=== PATIENT | male | born 1950 | race African-American/Black ===

== ENCOUNTER 2019-04-28 12:15 | Emergency (ER) | payer MEDICARE, MEDICAID ==
[~2019-04-28] VITALS: Ht 188 cm; Wt 102.1 kg
[2019-04-28] MEDS ORDERED: UNOBMED (12:33)
--- NOTE | 2019-04-28 12:38 | NUR ---
ED Nurse Note: Patient walked into ED c/o right foot pain and swelling since 04/23/19. patient is alert awake x4 ambulatory, breathing unlabored and even, skin is warm to touch.
--- NOTE | 2019-04-28 12:43 | Emergency Room Report ---
History of Present Illness General Chief Complaint: Pain Source: Patient Present Illness HPI 68-year-old male with history of chronic right ankle pain x10 years and GERD here complaining of increased pain in the right ankle when he applies pressure. Patient is currently under pain management and all glands and has Paoli. Patient traveled here a few days ago via car. Denies calf tenderness and swelling. Patient reports that he had a surgery in the right ankle with pin placement over 20 years ago and his primary doctor has told him that he needs to have surgery on the right ankle due to increased swelling and pain. Patient sees his primary care physician this coming Tuesday. Denies tingling or numbness , denies pain radiation. Patient is rating the pain 3 out of 10 when sitting and 5 out of 10 when walking applying pressure. He is requesting crutches in order to be able to walk. Patient also complains of worsening acid reflux however denies chest pain palpitation. Denies shortness of breath, nausea vomiting, fever and chills. Patient does not take any medication for his acid reflux. Allergies: Coded Allergies: No Known Allergies (Unverified , 04/28/19) Patient History Past Medical History: see triage record Past Surgical History: unable to obtain Pertinent Family History: none Immunizations: UTD Reviewed Nursing Documentation: PMH: Agreed; PSxH: Agreed Review of Systems All Other Systems: negative except mentioned in HPI Physical Exam Vital Signs Date Time Temp Pulse Resp B/P (MAP) Pulse Ox O2 Delivery O2 Flow Rate FiO2 04/28/19 12:28 98.1 73 19 135/84 (101) 100 Room Air Sp02 EP Interpretation: reviewed, normal General Appearance: normal inspection, well appearing, no apparent distress, alert, GCS 15 Head: normocephalic, atraumatic Eyes: bilateral eye normal inspection, bilateral eye PERRL ENT: normal ENT inspection, hearing grossly normal, normal pharynx Neck: normal inspection, full range of motion, supple Respiratory: normal inspection, chest non-tender, lungs clear, no respiratory distress, no wheezing Cardiovascular #1: normal inspection, normal peripheral pulses, regular rate, rhythm, no edema, no gallop, normal capillary refill Cardiovascular #2: 2+ dorsalis pedis (R), 2+ dorsalis pedis (L) Gastrointestinal: normal inspection, non tender, soft Rectal: deferred Genitourinary: no CVA tenderness Musculoskeletal: back normal, digits/nails normal, no calf tenderness, swelling - Right lateral ankle Neurologic: normal inspection, alert, oriented x3, burning supervisor III-XII nml as tested Psychiatric: normal inspection, judgement/insight normal Skin: normal inspection, normal color, no rash, warm/dry Lymphatic: normal inspection, no adenopathy Medical Decision Making PA Attestation All my diagnosis and treatment plans were reviewed ad discussed with my supervising physician Dr. Santos Diagnostic Impression: Primary Impression: Chronic ankle pain Additional Impression: GERD (gastroesophageal reflux disease) ER Course 68-year-old male with history of chronic right ankle pain x10 years and GERD here complaining of increased pain in the right ankle when he applies pressure. Patient is currently under pain management and all glands and has Paoli. Patient traveled here a few days ago via car. Denies calf tenderness and swelling. Patient reports that he had a surgery in the right ankle with pin placement over 20 years ago and his primary doctor has told him that he needs to have surgery on the right ankle due to increased swelling and pain. Patient sees his primary care physician this coming Tuesday. Denies tingling or numbness , denies pain radiation. Patient is rating the pain 3 out of 10 when sitting and 5 out of 10 when walking applying pressure. He is requesting crutches in order to be able to walk. Patient also complains of worsening acid reflux however denies chest pain palpitation. Denies shortness of breath, nausea vomiting, fever and chills. Patient does not take any medication for his acid reflux. Ddx considered but are not limited to: ankle sprain, ankle strain, ankle fracture, ankle contusion . Chronic ankle pain, GERD,PA Vital signs: are WNL, pt. is afebrile H&PE are most consistent with: Chronic ankle pain, GERD ORDERS: Omeprazole, crutches, EKG ED INTERVENTIONS: crutches, no XRay needed at this point as this is chronic DISCHARGE: At this time pt. is stable for d/c to home. Will provide printed patient care instructions, and any necessary prescriptions. Care plan and follow up instructions have been discussed with the patient prior to discharge. Follow-up with a primary care provider and pain management regarding your ankle at this point no indication for further imaging and cardiac work-up due to presentation of the patient's severity of symptoms and duration of symptoms. EKG Diagnostic Results Rate: normal Rhythm: NSR ST Segments: no acute changes Last Vital Signs Date Time Temp Pulse Resp B/P (MAP) Pulse Ox O2 Delivery O2 Flow Rate FiO2 04/28/19 12:28 98.1 73 19 135/84 (101) 100 Room Air Disposition: HOME, SELF-CARE Condition: Stable Scripts Omeprazole (OMEPRAZOLE) 20 Mg Tablet. 20 MG ORAL DAILY, #30 TAB Prov: Julien Munguia 04/28/19 Patient Instructions: Ankle Pain, Food Choices for Gastroesophageal Reflux Disease, Adult, [id number] Additional Instructions: Follow with a primary care provider and pain management for the ankle as it is an old injury and needs further attention keep it elevated take your medication as it was prescribed by your primary care provider avoid eating spicy and acidic food. Julien Munguia Apr 28, 2019 12:43
[2019-04-28] MEDS ORDERED: OMEPRAZOLE20 M3 ORAL (12:44)
[2019-04-28 12:48] VITALS: BP 131/82
[2019-04-28 13:02] VITALS: BP 131/82
--- NOTE | 2019-04-28 13:02 | NUR ---
ER DISCHARGE NOTE: Patient is cleared to be discharged per BETH BARTLETT, pt is aox4, on room air, with stable vital signs. pt was given dc and prescription instructions, pt was able to verbalize understanding, pt id band removed without complications. pt is able to ambulate with crutches. pt took all belongings.
== END 2019-04-28 13:05 | disposition home or self-care (01) ==
LOC: EMR 13:04
DX: M25.571 Pain in right ankle and joints of right foot (principal); K21.9 Gastro-esophageal reflux disease without esophagitis
CPT/HCPCS: 93005; 99282

== ENCOUNTER 2019-06-29 09:20 | Emergency (ER) | payer MEDICARE, MEDICAID ==
[~2019-06-29] VITALS: Ht 182.9 cm; Wt 99.8 kg
[~2019-06-29 09:20] MED LIST: OMEPRAZOLE20 M3 ORAL; UNOBMED
--- NOTE | 2019-06-29 09:30 | NUR ---
ED Nurse Note: pt walked in to ED due to cp aw coughing for over 1 1/2 weeks. breaths sounds clear. respirations even and non-labored noted. per pt, was here and he needs same tx. AAO x4. pt also c/o intermittent abdominal pain. on desk monitor. ekg done at the bed side. will wait for the further order.
[2019-06-29 09:31] VITALS: BP 175/94
[2019-06-29] MEDS ORDERED: cefTRIAXone 1 GM in NS 55 ML IV SCH (09:45)
--- NOTE | 2019-06-29 10:00 | NUR ---
ED Nurse Note: pt requested "morphine" for pain. pt refused other pain meds. RN notified to dr. Campuzano. will wait for the further order.
--- NOTE | 2019-06-29 10:14 | Diagnostic Imaging Report ---
Indication: Shortness of breath Technique: One view of the chest Comparison: none Findings: Lungs and pleural spaces are clear. Heart size is normal Impression: No acute process
[2019-06-29 10:41] LABS: BASOPHILS % (AUTO) 0.8 % (0.0-2.0); EOSINOPHILS % (AUTO) 4.3 % (0.0-3.0); HEMATOCRIT 38.8 % (42.0-52.0); HEMOGLOBIN 12.7 G/DL (14.2-18.0); LYMPHOCYTES % (AUTO) 26.6 % (20.0-45.0); MEAN CORPUSCULAR VOLUME 89 FL (80-99); MONOCYTES % (AUTO) 8.1 % (1.0-10.0); NEUTROPHILS % (AUTO) 60.2 % (45.0-75.0); PLATELET COUNT 257 K/UL (150-450); RED BLOOD COUNT 4.36 M/UL (4.70-6.10); RED CELL DISTRIBUTION WIDTH 12.5 % (11.6-14.8); WHITE BLOOD COUNT 6.6 K/UL (4.8-10.8)
[2019-06-29] MEDS ORDERED: Albuterol ud Inhalation HHN ONE (10:45)
[2019-06-29 10:47] LABS: ANION GAP 7 mmol/L (5-15); BLOOD UREA NITROGEN 11 mg/dL (7-18); CALCIUM 8.8 MG/DL (8.5-10.1); CARBON DIOXIDE 26 MMOL/L (21-32); CHLORIDE 105 MMOL/L (98-107); CREATININE 1.2 MG/DL (0.55-1.30); POTASSIUM 3.9 MMOL/L (3.5-5.1); SODIUM 138 MMOL/L (136-145)
[2019-06-29 10:51] LABS: ALANINE AMINOTRANSFERASE 21 U/L (12-78); ALBUMIN 3.5 G/DL (3.4-5.0); ALBUMIN/GLOBULIN RATIO 0.9 (1.0-2.7); ALKALINE PHOSPHATASE 64 U/L (46-116); ASPARTATE AMINO TRANSFERASE 14 U/L (15-37); BILIRUBIN,TOTAL 0.7 MG/DL (0.2-1.0)
[2019-06-29 11:00] VITALS: BP 127/77
--- NOTE | 2019-06-29 11:51 | Emergency Room Report ---
History of Present Illness General Chief Complaint: Upper Respiratory Illness Source: Patient Present Illness HPI This patient states that he and his have the same symptoms. He states that he has had cough and sputum production for the past 1 week. He denies fever chills. He denies nausea or vomiting. He denies chest pain or shortness of breath. He states that his was seen here at [facility] and was given a breathing treatment and feeling much better. He denies abdominal pain. He has no other complaints. Allergies: Coded Allergies: No Known Allergies (Unverified , 04/28/19) Patient History Past Medical History: see triage record, other - BPH Social History: Denies: smoking, alcohol use, drug use Reviewed Nursing Documentation: PMH: Agreed; PSxH: Agreed Nursing Documentation-PMH Past Medical History: No History, Except For Review of Systems All Other Systems: negative except mentioned in HPI Physical Exam Vital Signs Date Time Temp Pulse Resp B/P (MAP) Pulse Ox O2 Delivery O2 Flow Rate FiO2 06/29/19 09:25 98.6 76 16 175/94 (121) 99 Room Air 06/29/19 10:53 21 Sp02 EP Interpretation: reviewed, normal General Appearance: no apparent distress, alert, GCS 15, non-toxic Head: normocephalic, atraumatic Eyes: bilateral eye normal inspection, bilateral eye PERRL ENT: hearing grossly normal, normal pharynx, no angioedema, normal voice Neck: full range of motion, supple/symm/no masses Respiratory: chest non-tender, lungs clear, normal breath sounds, no respiratory distress, no retraction, no accessory muscle use, speaking full sentences Cardiovascular #1: regular rate, rhythm, no edema Gastrointestinal: normal bowel sounds, non tender, soft, non-distended, no guarding, no rebound Rectal: deferred Musculoskeletal: back normal, gait/station normal, normal range of motion, non- tender Neurologic: alert, oriented x3, responsive, motor strength/tone normal, sensory intact, speech normal Psychiatric: judgement/insight normal, memory normal, mood/affect normal, no suicidal/homicidal ideation Skin: no rash, normal color Medical Decision Making Diagnostic Impression: Primary Impression: Bronchitis ER Course This patient likely has acute bronchitis. He has had cough and sputum production. There is no obvious opacity on chest x-ray concerning for pneumonia , however, given the patient's age and length of symptoms I will treat with a course of antibiotics. He was given a breathing treatment here in the emergency department. The patient's well-appearing and nontoxic without respiratory distress. He is given close return precautions and follow-up instructions. EKG Diagnostic Results Rate: normal Rhythm: NSR ST Segments: no acute changes Rhythm Strip Diag. Results EP Interpretation: yes Rate: 60's Rhythm: NSR, no PVC's, other - PAC's Chest X-Ray Diagnostic Results Chest X-Ray Diagnostic Results : Chest X-Ray Ordered: Yes # of Views/Limited/Complete: 1 View Indication: Other - cough EP Interpretation: Yes Interpretation: no consolidation, no effusion, no pneumothorax, no acute cardiopulmonary disease Impression: No acute disease Electronically Signed by: Katiuska Campuzano DO Last Vital Signs Date Time Temp Pulse Resp B/P (MAP) Pulse Ox O2 Delivery O2 Flow Rate FiO2 06/29/19 11:03 63 16 100 Room Air 21 06/29/19 09:31 98.6 175/94 Status: improved Disposition: HOME, SELF-CARE Condition: Improved Referrals: NOT CHOSEN IPA/,REFERRING (PCP) Katiuska Campuzano DO Jun 29, 2019 11:51
[2019-06-29] MEDS ORDERED: ZITHROMAX250 MG ORAL (11:53)
[2019-06-29] MEDS ORDERED: HYDROcodone/Acetamin 5/325 tab ORAL ONE (12:15)
[2019-06-29 12:31] LABS: APPEARANCE,URINE CLEAR; BILIRUBIN, URINE NEGATIVE (NEGATIVE); COLOR,URINE PALE YELLOW; GLUCOSE, URINE (UA) NEGATIVE (NEGATIVE); KETONES,URINE NEGATIVE (NEGATIVE); LEUKOCYTE ESTERASE ,URINE 1+ (NEGATIVE); NITRITE,URINE NEGATIVE (NEGATIVE); PH,URINE 6.5 (4.5-8.0); PROTEIN,URINE NEGATIVE (NEGATIVE); UROBILINOGEN,URINE NORMAL MG/DL (0.0-1.0)
[2019-06-29 12:32] VITALS: BP 158/87
--- NOTE | 2019-06-29 12:32 | NUR ---
ER DISCHARGE NOTE: Patient is cleared to be discharged per ERMD with spouse, pt is aox4, on room air, with stable vital signs. pt was given dc and prescription instructions, pt was able to verbalize understanding, pt id band and iv site removed without complications. pt is able to ambulate with steady gait. pt took all belongings.
--- NOTE | 2019-07-01 13:00 | Cardiology Report ---
APPROVED REPORT EKG Measurement Heart [id number] Sinus rhythm with premature atrial complexes Otherwise normal ECG
== END 2019-06-29 12:32 | disposition home or self-care (01) ==
LOC: EMR 09:57
DX: J40 Bronchitis, not specified as acute or chronic (principal)
CPT/HCPCS: 36415; 71045; 80053; 81003; 85025; 87040; 93005; 94640; 94664; 96361; 96365; 96366; 99284; J0696

== ENCOUNTER 2020-05-21 08:56 | Emergency (ER) | payer MEDICARE, MEDICAID ==
[~2020-05-21] VITALS: Ht 185.4 cm; Wt 90.7 kg
[~2020-05-21 08:56] MED LIST changes: +ZITHROMAX250 MG ORAL
--- NOTE | 2020-05-21 09:21 | Emergency Room Report ---
History of Present Illness General Chief Complaint: Male Urogenital Problems Source: Patient Present Illness HPI Patient presents with a rash on his penis for 5 days. He was told at that time that it was caused by fungus. He has not been sexually active for over a year. Prior to that he never had a sexually transmitted disease. He denies any dysuria or pain. Has been using an ointment that does not seem to be helping. Patient was told that his blood sugars have been elevated. The last time he was checked was a year ago. He is borderline diabetic and has not started any treatment. No fevers or chills, no joint pain, no adenopathy. Allergies: Coded Allergies: No Known Allergies (Unverified , 04/28/19) COVID-19 Screening Contact w/high risk pt: No Experienced COVID-19 symptoms?: No COVID-19 Testing performed [employer]: Yes - nasopharyn (-) COVID-19 Screening: Negative COVID-19 COVID-19 Testing Source: Nasopharyng. x 1 month Patient History Past Medical History: see triage record Social History: Denies: smoking, alcohol use, drug use Social History Narrative From home, watches over his nephew Reviewed Nursing Documentation: PMH: Agreed; PSxH: Agreed Nursing Documentation-PMH Past Medical History: No Stated History Review of Systems Constitutional: Reports: see HPI Eye: Denies: discharge ENT: Denies: throat pain Genitourinary: Reports: see HPI Musculoskeletal: Reports: see HPI Skin: Reports: see HPI Endocrine: Reports: see HPI Physical Exam Vital Signs Date Time Temp Pulse Resp B/P (MAP) Pulse Ox O2 Delivery O2 Flow Rate FiO2 05/21/20 08:58 98.4 66 17 137/85 (102) 98 Room Air Sp02 EP Interpretation: reviewed, normal General Appearance: well appearing, no apparent distress, GCS 15 Head: normocephalic Eyes: bilateral eye normal inspection, bilateral eye PERRL ENT: moist mucus membranes Cardiovascular #1: regular rate, rhythm Gastrointestinal: normal inspection Genitourinary: other Musculoskeletal: gait/station normal Neurologic: alert, grossly normal Psychiatric: mood/affect normal Skin: other - See genitals Medical Decision Making Diagnostic Impression: Primary Impression: Balanitis Additional Impression: Monilia of penis ER Course Patient presents with a penile rash. Includes obese, monilia, canker, chancroid amongst others. There is no lymphadenopathy. By the clinical appearance it does not look like syphilis. As he is partially treated considerations for yeast is high. We will check an Accu-Chek and start him on fluconazole. Accu check 133 Patient unable to give urine sample. Discussed treatment plan with patient. Discussed the importance of providing urine sample. Patient understands but needs to leaf size picker his nephew. Patient stable for outpatient observation and treatment. Last Vital Signs Date Time Temp Pulse Resp B/P (MAP) Pulse Ox O2 Delivery O2 Flow Rate FiO2 05/21/20 11:17 98.4 17 137/85 98 Room Air 05/21/20 08:58 66 Status: improved Disposition: HOME, SELF-CARE Condition: Improved Scripts Tolnaftate (Tolnaftate) 15 Gm Cream..g. 1 APPLIC TOPIC BID, #30 APPLIC Prov: Latrell Serna MD 05/21/20 Fluconazole (FLUCONAZOLE) 100 Mg Tablet 100 MG ORAL DAILY, #7 TAB 0 Refills Prov: Latrell Serna MD 05/21/20 Bacitracin (Bacitracin) 28.4 Gm Oint...g. 1 APPLIC TOPIC BID, #20 GM Prov: Latrell Serna MD 05/21/20 Latrell Serna MD May 21, 2020 09:21
[2020-05-21] MEDS ORDERED: Fluconazole 100mg tab ORAL ONE (09:30)
[2020-05-21] MEDS ORDERED: BACITRACIN15 GM TOPIC (11:09)
[2020-05-21] MEDS ORDERED: FLUCONAZOLE100 MG ORAL (11:09)
[2020-05-21] MEDS ORDERED: TINACTIN 1%1 APPLIC TOPIC (11:09)
[2020-05-21 11:17] VITALS: BP 137/85
== END 2020-05-21 11:18 | disposition home or self-care (01) ==
LOC: EMR 09:30
DX: N48.1 Balanitis (principal); B37.49 Other urogenital candidiasis
CPT/HCPCS: 82962; 99282